=== PATIENT | male | born 1950 | race Caucasian/White ===

== ENCOUNTER → 2017-11-28 | Outpatient (CLI) | payer OTHER | LOC: NUC 11:38 | DX: I20.8 Other forms of angina pectoris (principal); R07.9 Chest pain, unspecified ==

== ENCOUNTER → 2018-02-20 | Outpatient (CLI) | payer OTHER | LOC: CAT 10:29 | DX: J43.9 Emphysema, unspecified (principal); J84.10 Pulmonary fibrosis, unspecified; J98.4 Other disorders of lung; I25.10 Atherosclerotic heart disease of native coronary artery without angina pectoris; R91.8 Other nonspecific abnormal finding of lung field; I70.0 Atherosclerosis of aorta; M25.78 Osteophyte, vertebrae ==

== ENCOUNTER 2019-01-11 08:21 | Inpatient (IN) | payer OTHER ==
[2019-01-11] VITALS (26 sets, daily range): BP systolic 106–165; BP diastolic 62–93
[~2019-01-11] VITALS: Ht 170.2 cm; Wt 66.7 kg
[2019-01-11 08:50] LABS: HEMATOCRIT 37.6 % (42.0-52.0); HEMOGLOBIN 12.2 gm/dL (14.0-18.0); MCH 30.3 pg (26.0-34.0); MCHC 32.5 g/dL (28.0-37.0); MCV 93.3 fL (80.0-100.0); PLATELET COUNT 239 thou/uL (150-400); RBC 4.03 mil/uL (4.50-6.00); RDW 14.5 % (10.5-14.5); WBC 7.1 thou/uL (4.0-11.0)
[2019-01-11 08:55] LABS: ANION GAP 0 mmol/L (7-16); BUN 9 mg/dL (7-18); CALCIUM 9.1 mg/dL (8.5-10.1); CHLORIDE 97 mmol/L (98-107); CO2 42 mmol/L (21-32); CREATININE 0.6 mg/dL (0.7-1.3); GLUCOSE 114 mg/dL (74-106); SODIUM 139 mmol/L (136-145)
[2019-01-11 09:04] LABS: BE(vivo) 11.5 mmol/L (-2 to +3); PO2 93.1 mmHg (80.0-100.0); sO2 95.7 % (92.0-98.0)
[2019-01-11 09:05] LABS: PCO2 91.1 mmHg (35.0-45.0); pH 7.282 (7.360-7.450)
[2019-01-11 09:05] LABS: ALBUMIN 3.1 g/dL (3.4-5.0); SGOT 22 U/L (15-37); SGPT 16 U/L (30-65); TOTAL BILIRUBIN 0.6 mg/dL (<0.1-1.0); TOTAL PROTEIN 6.2 g/dL (6.4-8.2); TROPONIN-I <0.06 ng/mL (<0.06)
[2019-01-11] MEDS ORDERED: MONTELUKAST SODI4 M1 PO (09:19)
[2019-01-11] MEDS ORDERED: SYMBICORT160 MCG/4. INH (09:20)
[2019-01-11] MEDS ORDERED: NYSTATIN100000 UNI SW&SWALLOW (09:20)
[2019-01-11] MEDS ORDERED: PROAIR HFA8.5 GM INH (09:20)
[2019-01-11] MEDS ORDERED: ALBUTEROL2.5 MG/31 INH (09:23)
[2019-01-11] MEDS ORDERED: NORVASC 2.5 MG2.5 M1 PO (09:24)
[2019-01-11] MEDS ORDERED: PLAVIX 75 MG TA75 MG PO (09:24)
[2019-01-11] MEDS ORDERED: CLARITIN10 M3 PO (09:24)
[2019-01-11] MEDS ORDERED: AZITHROMYCIN500 MG PO (09:25)
[2019-01-11] MEDS ORDERED: LIPITOR40 MG PO (09:26)
[2019-01-11] MEDS ORDERED: COMBIVENT RESPIM4 GM INH (09:27)
[2019-01-11] MEDS ORDERED: SPIRIVA RESPIMAT4 G1 INH (09:28)
[2019-01-11] MEDS ORDERED: EFFIENT10 MG PO (09:30)
[2019-01-11 09:43] LABS: ABSOLUTE NEUTROPHILS 3.9 thou/uL (1.4-8.2); PLATELET ESTIMATE NORMAL
[2019-01-11 10:46] LABS: BE(vivo) 12.3 mmol/L (-2 to +3); HCO3 42.6 mmol/L (22.0-26.0); PCO2 90.1 mmHg (35.0-45.0); pH 7.293 (7.360-7.450); sO2 90.7 % (92.0-98.0)
--- NOTE | 2019-01-11 11:38 | NUR ---
01/11: 1100 PT ARRIVE FROM ED WITH RT AND RN ON BIPAP. CRITICAL LAB CALLED TO DR MIN, REPEAT ABG ORDERED. START IVF. PT C/O PAIN IN LEFT SHOULDER, PRN TYLENOL GIVEN. PT FAMILY NOT IN WAITING ROOM, WENT TO A .
[2019-01-11 13:23] LABS: BE(vivo) 12.5 mmol/L (-2 to +3); HCO3 41.8 mmol/L (22.0-26.0); PO2 77.8 mmHg (80.0-100.0); pH 7.332 (7.360-7.450)
[2019-01-11 13:24] LABS: PCO2 80.7 mmHg (35.0-45.0)
--- NOTE | 2019-01-11 14:22 | NUR ---
PT STATES THAT HE IS UNABLE TO VOID. BLADDER SCAN PT AND 585MLS IN BLADDER. SAMMY TAG MARKER ASSESS PT AND ORDER TO START FLOWMAX AND GROVE CATHETER. WILL CONTINUE TO ASSESS.
[2019-01-12] VITALS (23 sets, daily range): BP systolic 118–161; BP diastolic 63–94
--- NOTE | 2019-01-12 06:24 | NUR ---
Pt has had uneventful night. Has refused insulin for blood sugars > 150 since he has not been eating well. States SOA is improved, but remains on 6 L cannula.
--- NOTE | 2019-01-12 07:53 | EKG ---
[address] [address] ELECTROCARDIOGRAM REPORT Name: LIAN FAUSTIN Room #: 247- ADM IN M.R.#: [id number] Admission: 01/11/19 Attend Phys: Eric Terry MD Discharge: Date of : 48 Report #: [id number] THIS REPORT FOR: //name// [facility] ED Test Date: 2019-01-11 Test Time: 08:45:26 Pat Name: LIAN FAUSTIN Department: Room: [facility] Gender: M Manufacturing Engineering Technologist: Acacia AGUILAR : 1950 Requested By: Eric Terry Order Number: [id number] MD: Klaus Juarez Measurements Intervals [place] Rate: 102 P: NM: QRS: 79 QRSD: 72 T: 81 QT: 328 QTc: 428 Interpretive Statements Sinus tachycardia Otherwise no significant abnormality Compared to ECG 12/04/1999 09:48:22 No significant change was found Electronically Signed On 01-12-2019 7:53:15 TRAVOGRAPH OPERATOR by Klaus Juarez [email or web address] <ELECTRONICALLY SIGNED> By: Klaus Juarez MD, [facility] 01/12/19 0753 4 Klaus Juarez MD, [facility] /EPI
--- NOTE | 2019-01-12 13:37 | NUR ---
Case opened to follow for dc planning. Pt is currently in ICU with copd exac and respiratory failure. Gunnery/Ordnance Officer visited with him at beside. he is now on 6liters and reports he normally wears 4liters at home. He has home o2 per [employer]. He has no other dme or hh history. He lives with his and has two steps into the home. He can stay on the main level. He reports sign sob and fatigue at home due to his breathing. He reports he doesn't get out of the house much due to this. His pcp is Dr. Mayelin Kaba. His sets up a pill box for him as he reports some forgetfulness. No family at bedside currently. Cm role introduced. The pt is receptive to HH referral at dc if needed. Will ask for therapy evals and follow along.
--- NOTE | 2019-01-12 15:30 | NUR ---
DR. PLASCENCIA CALLED RE PT TACHYCARDIC 130S SOA. SATS 88-90 AND PT FEELS LIKE HE IS GOING TO . CALLED, EMOTIONAL SUPPORT GIVEN. PT DOES NOT WANT TO GO BACK ON THE BIPAP, STATES HE CANNOT BREATH WITH IT. 1600 ATIVAN 1MG SIVP GIVEN, PT FELL ASLEEP AND PLACED BACK ON BIPAP. HR CAME DOWN AND SAT CAME UP ONCE PLACED ON 40 %
--- NOTE | 2019-01-12 18:52 | NUR ---
pt much calmer post ativan. tolorating bipap.
[2019-01-13] VITALS (25 sets, daily range): BP systolic 114–151; BP diastolic 66–84
--- NOTE | 2019-01-13 06:48 | NUR ---
PATIENT DROWSY DURING BEGINNING OF SHIFT. BIPAP WORN FROM 2391-8428, PATIENT RESTED WELL. CURRENTLY ON 6L NASAL CANNULA, 02 SAT REMAINED ABOVE 92%. SPOKE WITH DAUGHTER AND AT THE BEDSIDE ABOUT THE PLAN OF CARE. DAUGHTER HAD QUESTIONS ABOUT PATIENT GOING HOME WITH BIPAP OR CPAP EQUIPMENT. WILL PASS INFORMATION TO ONCOMING RN. PATIENT EDUCATED ON NURSING PLAN OF CARE AND VERBALIZED UNDERSTANDING. NO SIGNS OF ACUTE DISTRESS NOTED AT THIS TIME. WILL CONTINUE TO MONITOR.
--- NOTE | 2019-01-13 12:21 | NUR ---
DC timeframe is uncertain. Will reasses once out of ICU for possible HH referral or dme needs. Pt still needing bipap. Will follow.
[2019-01-14] VITALS (25 sets, daily range): BP systolic 121–188; BP diastolic 72–133
--- NOTE | 2019-01-14 03:46 | NUR ---
ASSUMED CARE OF PATIENT AT 1900. BP SLIGHTLY ELEVATED. DENIES PAIN. BED IN CHAIR POSITION. REQUESTED TO LAY FLAT. GIVEN PRN HYDROCODONE AT 10. BP CONTINUED TO BE ELEVATED WITH PAIN, FENTYNAL GIVEN. HEART RATE INCREASED, NOTED RHYTHM CHANGE, EKG CONFIRMED AFIB. DR PUENTE CALLED. ORDERS RECIEVED. PLACED ON CARDIZEM GTT. TITRATED TO KEEP RATE BELOW 120 AND CONTINUE TO HAVE GOOD BLOOD PRESSURE SUPPORT. RESTING WELL THROUGH THE NIGHT. ASSESSMENT CHARTED.
--- NOTE | 2019-01-14 19:29 | NUR ---
ASSESSMENTS AND INTERVENTIONS DOCCUMENTED. PATIENT VERY ANXIOUS THROUGH OUT SHIFT. COMPLAINING OF SOB. PATIENT HAD BREATHING TREATMENT AND PATIENT STILL ANXIOUS. XANAX GIVEN. PATIENT RESTED, BUT WAS STILL SHOWING SIGNS OF ANXIETY. PATIENT COMFORTED BY RN AND EDUCATED ON BREATHING.
[2019-01-15] VITALS (13 sets, daily range): BP systolic 123–157; BP diastolic 70–114
[2019-01-15 01:32] LABS: HEMATOCRIT 37.3 % (42.0-52.0); HEMOGLOBIN 12.1 gm/dL (14.0-18.0); MCH 29.9 pg (26.0-34.0); MCHC 32.5 g/dL (28.0-37.0); MCV 91.9 fL (80.0-100.0); RBC 4.05 mil/uL (4.50-6.00); RDW 15.1 % (10.5-14.5); WBC 9.4 thou/uL (4.0-11.0)
[2019-01-15 01:34] LABS: ANION GAP < 0 mmol/L (7-16); BUN 18 mg/dL (7-18); CALCIUM 8.7 mg/dL (8.5-10.1); CHLORIDE 97 mmol/L (98-107); CO2 38 mmol/L (21-32); CREATININE 0.6 mg/dL (0.7-1.3); GLUCOSE 140 mg/dL (74-106); MAGNESIUM 1.9 mg/dL (1.8-2.4); POTASSIUM 4.2 mmol/L (3.5-5.1); SODIUM 130 mmol/L (136-145)
--- NOTE | 2019-01-15 05:16 | NUR ---
ASSUMED CARE OF PATIENT AT 1900. VSS, AFEBRILE. SLIGHT RHYTHM CHANGE NOTED ON ASSESSMENT, ORDERS OBTAINED FOR EKG. RESULTS CALLED TO Zohra KOTHARI SHORTLY AFTER 7 BEAT RUN OF VTACH. ORDERS OBTAINED FOR LABS. RESULTS REPORTED TO Zohra BARROS. ORDERS RECIEVED. PATIENT RESTING COMFORTABLY, ASYMPTOMATIC. ON BIPAP WHILE SLEEPING, PRN XANAX GIVEN, STATES EXTREME RELIEF. DENIES PAIN AT THIS TIME. UP TO BSC FOR BM, EXTREMELY SOA. WORKING TOWARDS POC GOALS.
--- NOTE | 2019-01-15 13:05 | EKG ---
[address] [address] ELECTROCARDIOGRAM REPORT Name: LIAN FAUSTIN Room #: 358-P [facility] ..#: [id number] Admission: 01/11/19 Attend Phys: Eric Terry MD Discharge: Date of : 48 Report #: [id number] THIS REPORT FOR: //name// [facility] Test Date: 2019-01-15 Test Time: 00:56:46 Pat Name: LIAN FAUSTIN Department: Room: [facility] Gender: M Logistics Coordinator: alphonse medina : 1950 Requested By: Radha Lozano Order Number: [id number] MD: Klaus Juarez Measurements Intervals [place] Rate: 64 P: 81 MI: 106 QRS: 76 QRSD: 77 T: 61 QT: 368 QTc: 380 Interpretive Statements Sinus rhythm Atrial premature complexes Compared to ECG 01/11/2019 08:45:26 Atrial premature complex(es) now present Sinus tachycardia no longer present Electronically Signed On 01-15-2019 13:05:06 DEMURRAGE CLERK by Klaus Juarez [email or web address] <ELECTRONICALLY SIGNED> By: Klaus Juarez MD, [facility] 01/15/19 1305 0056 0056 Klaus Juarez MD, [facility] /EPI
--- NOTE | 2019-01-15 17:42 | NUR ---
PATIENT TRANSFER FROM ICU AT 1030. ANXIOUS. ON 40% VENTI MASK WITH CONTINUE PLUS OX 95%. MAX ASSISTED UP. SLOWLY TOWARDS POC GOALS.
--- NOTE | 2019-01-16 03:05 | NUR ---
PATIENT IS PROGRESSING SLOWLY IN HIS CARE PLAN. VITAL SIGNS STABLE THROUGHOUT SHIFT WITH PATIENT HAVING NO COMPLAINTS OF PAIN OR NAUSEA. FULLY ORIENTED, PATIENT IS ABLE TO CALL APPROPRIATELY FOR NEEDS AND PARTICIPATE IN CARE. PATIENT DID FREQUENTLY EXHIBIT ANXIETY. BREATHING STABLE EVIDENCED BY ASSESSMENT AND CONTINUOUS SATURATION MONITOR, PATIENT WAS ABLE TO TOLERATE BIPAP OVERNIGHT. UP MULTIPLE TIMES TO BEDSIDE COMMODE WITH ASSISTANCE INCIDENT FREE, PATIENT IS UNSTEADY ON FEET AND CONSIDERED A HIGH FALL RISK. CONTINUE PLAN OF CARE.
[2019-01-16 04:39] VITALS: BP 146/80
[2019-01-16 07:24] VITALS: BP 149/88
[2019-01-16 11:14] VITALS: BP 139/93
[2019-01-16 15:26] VITALS: BP 163/90
--- NOTE | 2019-01-16 18:31 | NUR ---
pt is A&0X3, PT has bipap and high follow o2 6-10l/min/nc to keep o2sat >91%, pt has PRN medication to help anxiety, pt's vs are stable.
[2019-01-16 19:56] VITALS: BP 153/80
--- NOTE | 2019-01-17 03:27 | NUR ---
Patient has been struggling with anxiety related to dyspnea. Patient has requested he receive his anxiolytic regularly- as soon as it is available. After assessing patient's anxiety level, nursing has administered PRN alprazolam nearly every four hours NOC. Patient has rested comfortably most of NOC and reports feeling less dyspnea.
[2019-01-17 05:36] VITALS: BP 147/78
[2019-01-17 07:32] VITALS: BP 145/88
[2019-01-17 11:40] VITALS: BP 133/76
[2019-01-17 15:05] VITALS: BP 142/85
[2019-01-17 19:38] VITALS: BP 141/85
--- NOTE | 2019-01-18 02:54 | NUR ---
PATIENT IS PROGRESSING SLOWLY IN HIS CARE PLAN. VITAL SIGNS STABLE WITH PATIENT HAVING NO COMPLAINTS OF PAIN OR NAUSEA. PATIENT IS FULLY ORIENTED BUT HIGHLY ANXIOUS AND REQUESTS ANXIETY MEDICATION CONSISTENTLY. BREATHING STABLE ON NASAL CANNULA EVIDENCED BY ASSESSMENT AND SPOT OXYGENATION CHECKS. PATIENT HAS BEEN ABLE TO TOLERATE THE BIPAP SO FAR OVERNIGHT. UP TO THE BEDSIDE COMMODE WITH ASSISTANCE INCIDENT FREE. PATIENT IS UNSTEADY AND CONSIDERED A HIGH FALL RISK. POSSIBLE DISCHARGE SOON TO REHAB OR HOME. CONTINUE PLAN OF CARE.
[2019-01-18 04:40] VITALS: BP 122/83
[2019-01-18 07:39] VITALS: BP 128/83
--- NOTE | 2019-01-18 11:41 | NUR ---
Nutrition: Following for oral intake progress. Continues on a heart healthy diet w/ soft/chopped meats per pt request. Eating variable amounts; 30-100% meals, but close to a 2/3 meal completion rate at 63% average this weekend. Also drinking 100% of 2 strawberry Ensure Enlive supplements daily for an added 700 kcals, 40 g protein. Pt relies on supplements between meals after meal settles. Beneficial for extra kcals in case meal slightly lower d/t SOB w/ eating at times. Pt receiving plentiful amounts of protein each meal. Plans to continue supplements after discharge (coupons provided). Discussed store options available and protein differences (Ensure, Boost, [place] w/ milk, or even high protein Fairlife milk). Change to low nutrition risk as pt reports appetite fairly stable again, at baseline.
[2019-01-18 11:50] VITALS: BP 130/75
--- NOTE | 2019-01-18 12:07 | NUR ---
IMTIAZ reviewed chart and spoke with nursing and attending physician. Pt was transferred to 3W from ICU and is progressing towards goals for discharge. IMTIAZ discussed case with Therapy Mgr who states that pt has been accepted to 5N. SW discussed with attending physician. Pt is not ready for d/c to 5N today. IMTIAZ is following to assist as needed with discharge planning.
--- NOTE | 2019-01-18 13:07 | NUR ---
PATIENT SEEN BY DR. VALLE THIS DATE. PATIENT HAS DESIRE TO RETURN DIRECTLY TO HOME. PATIENT MAY BE A CANDIDATE FOR ACUTE REHAB. WILL CONTINUE TO FOLLOW TO ASSESS IF PATIENT HAS FUNCTIONAL NEEDS FOR REHAB AND TOLERANCE FOR 3 HOURS OF THERAPY A DAY. CREWMAN ARMOURED PERSONNEL CARRIER M113 UPDATED. THANK YOU FOR THIS REFERRAL.
[2019-01-18 15:46] VITALS: BP 139/82
--- NOTE | 2019-01-18 18:48 | NUR ---
PT is A&OX3, t is continuing o2 4l/min/nc, pt 's vs and o2sat are stable, pt 's Chery catheter has removed at 1000am,after then pt has void 800ml urine by this time.
[2019-01-18 19:30] VITALS: BP 132/81
--- NOTE | 2019-01-19 02:25 | NUR ---
Patient seemed more relaxed NOC than this nurse's last shift two days ago working with him. Patient stated he felt more relaxed today and felt that he was breathing better than two days ago. Patient further advised he is still anxious and requested to take his alprozolam regularly to manage his anxiety. Patient rested quietly most of NOC. Nursing will continue to monitor.
[2019-01-19 04:10] VITALS: BP 127/73
[2019-01-19 07:24] VITALS: BP 119/64
[2019-01-19] MEDS ORDERED: LEVAQUIN 500 M500 M2 PO (09:38)
[2019-01-19] MEDS ORDERED: FLOMAX0.4 MG PO (09:38)
[2019-01-19] MEDS ORDERED: IPRAT-ALBUT 0.5-3 ML INH (09:38)
[2019-01-19] MEDS ORDERED: ENOXAPARIN40 MG/0.1 SUBQ (09:39)
[2019-01-19] MEDS ORDERED: SENNA-TIME S T1 EACH PO (09:39)
[2019-01-19] MEDS ORDERED: LOPRESSOR50 MG PO (09:40)
[2019-01-19] MEDS ORDERED: RAYOS5 MG PO (09:41)
[2019-01-19] MEDS ORDERED: ALPRAZOLAM 0.0.25 M1 PO (09:44)
[2019-01-19] MEDS ORDERED: TRAMADOL 50 MG50 MG PO (09:44)
[2019-01-19] MEDS ORDERED: CHANTIX0.5 MG PO (09:44)
[2019-01-19 11:09] VITALS: BP 151/85
--- NOTE | 2019-01-19 14:46 | NUR ---
IMTIAZ reviewed chart and spoke with nursing and attending physician. Pt is medically stable for discharge to 5N today. 5N rehab spec met with pt to discuss discharge to 5N. Pt is not agreeable with having to stay on 5N for at least 6 nights. Pt states he prefers to go home. IMTIAZ updated attending physician who spoke with pt and pt's . SW met with pt at bedside to discuss discharge plan. Pt states he will not go to 5N if he has to stay at least 6 nights. Pt states that due to his anxiety, he recovers better in his home. Pt is agreeable with HH services. SW spoke with pt's via speakerphone with pt. Pt's is agreeable with pt returning home and states pt has home O2 in place, but will need a new nebulizer and cpap machine. Pt has been using bipap in the hospital. SW explained need for outpatient sleep study to qualify for home cpap/bipap. Pt and spouse verbalized understanding. SW provided options for HH services. No preference voiced. Pt's PCP is Dr. Mayelin Kaba. IMTIAZ requested maintenance planner to fax referral to [facility], as they have RT available. IMTIAZ updated 5N rehab spec, pt's nurse and attending physician. Plan is for pt to dishcharge home tomorrow with HH services. IMTIAZ contacted the Sleep Lab to assist with scheduling pt an outpatient sleep study. planner to fax clinical info. IMTIAZ requested an order for sleep study from attending physician. IMTIAZ notified [facility] liaison of new referral. IMTIAZ is following to assist as needed with discharge planning.
--- NOTE | 2019-01-19 14:52 | NUR ---
DISCHARGE PLANNING. DISCHARGE PLAN IS TO HOME WITH HOME HEALTH SERVICES. PATIENT REFERRAL FAXED TO [facility] FOR HH NEEDS. CALL PLACED TO [facility] TO NOTIFY. AWAITING RESPONSE. PATIENT FACESHEET AND H&P FAXED TO SLEEP LAB FOR OUTPATIENT SLEEP STUDY NEEDS. PLAN IS FOR PATIENT TO DISCHARGE TO HOME TOMORROW. FOLLOWING TO ASSIST.
[2019-01-19 15:16] VITALS: BP 135/78
--- NOTE | 2019-01-19 16:21 | NUR ---
pt is A&OX3, pt is continuing o2 4L/MIN/NC, and IV ABX, PT 's vs and o2sat are stable, pt's anxiety can control by medication.pt denies pain and sob when pt gets up to bathroom , pt has slowly meeting care plan goals, RN has called dr to report pt refused to go to rehab 5N, pt may go home tomorrow with home health care, PT/OT/RT,pt and pt's are happly to d/c to home tomorrow.
[2019-01-19 20:16] VITALS: BP 128/81
[2019-01-20 04:24] VITALS: BP 119/79
--- NOTE | 2019-01-20 06:36 | NUR ---
Patient appeared to have less anxiety this NOC than yesterday. Alprazolam administered as needed. Patient is extremely happy that he is going home today. Nursing will continue to monitor.
[2019-01-20 07:26] VITALS: BP 120/73
[2019-01-20 11:34] VITALS: BP 139/78
--- NOTE | 2019-01-20 13:14 | NUR ---
I have reviewed the documentation by JUSTICE PARRA from 01/20/19 to 01/20/19 and I concur with it. SAYRA RAMOS
--- NOTE | 2019-01-20 16:15 | NUR ---
DISCHARGE NOTE: IMTIAZ reviewed chart and spoke with nursing and attending physician. Pt is medically stable for discharge today. Pt is now agreeable with going to 5N. IMTIAZ updated 5N rehab services aide who met with pt at bedside. Pt concerned about having a cpap/bipap machine. SW discussed with attending physician about pt getting a trilogy machine for home use. Attending physician agreeable with referral for trilogy. SW met with pt at bedside to discuss discharge plan. SW explained process for obtaining a trilogy machine. Pt is agreeable. Attending physician met with pt and SW to further discuss the home trilogy. Pt is agreeable. planner internship faxed clinical info and orders to [facility]. SW notified [facility] liaison. Pt qualifies for home trilogy and is covered at 100%. Trilogy to be delivered to pt's room on 5N tomorrow. Pt will start using home trilogy machine while on rehab. Pt will discharge home with [facility], who met with pt at bedside earlier today. IMTIAZ updated pt's nurse. Pt to move to 5N later today. IMTIAZ spoke with pt's via phone to provide update and confirmed discharge plan. Rehab CM to follow and assist as needed with discharge planning.
[2019-01-20 16:27] VITALS: BP 131/73
--- NOTE | 2019-01-20 16:28 | NUR ---
pt is A&OX3, PT is continuing o2 4L/MIN/NC, PT's vs and o2sat are stable, pt has SOB with activities, pt has getting up to bathroom with assist, RN has received order discharge to Rehab units 5N today.
== END 2019-01-20 18:18 | DRG 189 ==
LOC: ER 08:21 → EROBS 09:57 → ICU 09:57 → 3W 01-15 10:16
PROVIDERS: Emergency Medicine; Internal Medicine Pulmonary Disease; Nurse Practitioner Family; ADMIT Hospitalist
PROC: 5A09357 Assistance with Respiratory Ventilation, Less than 24 Consecutive Hours, Continuous Positive Airway Pressure (ICD-10-PCS; principal; 2019-01-14)
PROC: 5A09357 Assistance with Respiratory Ventilation, Less than 24 Consecutive Hours, Continuous Positive Airway Pressure (ICD-10-PCS; 2019-01-15)
PROC: 5A09357 Assistance with Respiratory Ventilation, Less than 24 Consecutive Hours, Continuous Positive Airway Pressure (ICD-10-PCS; 2019-01-16)
PROC: 5A09357 Assistance with Respiratory Ventilation, Less than 24 Consecutive Hours, Continuous Positive Airway Pressure (ICD-10-PCS; 2019-01-17)
PROC: 5A09357 Assistance with Respiratory Ventilation, Less than 24 Consecutive Hours, Continuous Positive Airway Pressure (ICD-10-PCS; 2019-01-18)
PROC: 5A09357 Assistance with Respiratory Ventilation, Less than 24 Consecutive Hours, Continuous Positive Airway Pressure (ICD-10-PCS; 2019-01-19)
PROC: 5A09357 Assistance with Respiratory Ventilation, Less than 24 Consecutive Hours, Continuous Positive Airway Pressure (ICD-10-PCS; 2019-01-20)
DX: J96.22 Acute and chronic respiratory failure with hypercapnia (principal); J44.1 Chronic obstructive pulmonary disease with (acute) exacerbation; E46 Unspecified protein-calorie malnutrition; I48.91 Unspecified atrial fibrillation; F17.210 Nicotine dependence, cigarettes, uncomplicated; E78.5 Hyperlipidemia, unspecified; I25.10 Atherosclerotic heart disease of native coronary artery without angina pectoris; I73.9 Peripheral vascular disease, unspecified; N40.0 Benign prostatic hyperplasia without lower urinary tract symptoms; I10 Essential (primary) hypertension; J96.21 Acute and chronic respiratory failure with hypoxia; Z23 Encounter for immunization; Z95.5 Presence of coronary angioplasty implant and graft; Z95.820 Peripheral vascular angioplasty status with implants and grafts; Z99.81 Dependence on supplemental oxygen; Z68.23 Body mass index [BMI] 23.0-23.9, adult; Z71.6 Tobacco abuse counseling
CPT/HCPCS: 10078; 10879

== ENCOUNTER 2019-01-19 12:21 | Inpatient (IN) | payer OTHER ==
[~2019-01-19] VITALS: Ht 172.7 cm; Wt 69.4 kg
[~2019-01-19 12:21] MED LIST: ALBUTEROL2.5 MG/31 INH; ALPRAZOLAM 0.0.25 M1 PO; AZITHROMYCIN500 MG PO; CHANTIX0.5 MG PO; CLARITIN10 M3 PO; COMBIVENT RESPIM4 GM INH; EFFIENT10 MG PO; ENOXAPARIN40 MG/0.1 SUBQ; FLOMAX0.4 MG PO; IPRAT-ALBUT 0.5-3 ML INH; LEVAQUIN 500 M500 M2 PO; LIPITOR40 MG PO; LOPRESSOR50 MG PO; MONTELUKAST SODI4 M1 PO; NORVASC 2.5 MG2.5 M1 PO; NYSTATIN100000 UNI SW&SWALLOW; PLAVIX 75 MG TA75 MG PO; PROAIR HFA8.5 GM INH; RAYOS5 MG PO; SENNA-TIME S T1 EACH PO; SPIRIVA RESPIMAT4 G1 INH; SYMBICORT160 MCG/4. INH; TRAMADOL 50 MG50 MG PO
[2019-01-20 18:45] VITALS: BP 132/84
--- NOTE | 2019-01-21 01:00 | NUR ---
PATIENT HERE WITH RECENT ACUTE RESPIRATORY FAILURE, STATES HE WAS REALLY STRUGGLING AT HOME AND HAS BEEN TOLD HE NEEDS CPAP/BIPAP/TRILOGY AT HOME. USING 4 LITERS OXYGEN TO WALK TO BATHROOM FOR VOID AND BM
--- NOTE | 2019-01-21 04:19 | NUR ---
OTHER THAN WALK TO BATHROOM, PATIENT HAS BEEN TOLERATING BIPAP SINCE 2244. XANAX AT MIDNIGHT, WILL OFFER ANOTHER NEXT TIME HE IS AWAKE SINCE HE PREFERS TO TAKE XANAX EVERY 4 HOURS FOR ANXIETY.
[2019-01-21 06:10] LABS: HEMATOCRIT 37.4 % (42.0-52.0); HEMOGLOBIN 12.1 gm/dL (14.0-18.0); MCH 29.9 pg (26.0-34.0); MCHC 32.4 g/dL (28.0-37.0); MCV 92.2 fL (80.0-100.0); RBC 4.05 mil/uL (4.50-6.00); RDW 15.2 % (10.5-14.5); WBC 14.5 thou/uL (4.0-11.0)
[2019-01-21 06:14] LABS: ANION GAP < 0 mmol/L (7-16); BUN 25 mg/dL (7-18); CALCIUM 8.7 mg/dL (8.5-10.1); CHLORIDE 102 mmol/L (98-107); CO2 40 mmol/L (21-32); CREATININE 0.5 mg/dL (0.7-1.3); GLUCOSE 106 mg/dL (74-106); POTASSIUM 4.8 mmol/L (3.5-5.1); SODIUM 140 mmol/L (136-145)
--- NOTE | 2019-01-21 08:11 | NUR ---
Nutrition: Received wt loss consult for 20#/malnutrition. New admit to rehab 01/20. Already assessed on acute floor 01/[address]; reassessed again this week on 01/18. Pt reported 24# wt loss over 1-1.5 yrs for a 15% wt change. Since admit, wt up +12-15# from 137-141# to 153# per 01/20. With some wt regain and adequate po intake, will defer diagnosis at this time. 85% meal average x 2 days, 74% average overall since 01/16. [facility], he reported general return to baseline appetite. Continues to drink Ensure Enlive BID between meals, adding 700 kcals, 40 g protein/day. Supplement continued w/ new rehab admit and coupons provided to encourage ongoing use after d/c. Given significant nutritions gains since Nov admit, keep as low nutrition risk.
[2019-01-21 09:30] VITALS: BP 129/71
--- NOTE | 2019-01-21 13:49 | NUR ---
ASSUMED CARE OF PT AT 0715. PT IS A&OX4 AND VITAL SIGNS ARE STABLE. PT DENIES PAIN, BUT REPORTS SEVERE ANXIETY. ANXIETY MANAGED WITH PO MEDICATIONS, PARTICIPATED IN SCHEDULED THERAPEIS. PT REPORTS THAT HE FEELS ANXIOUS ABOUT BECOMING SHORT OF BREATH AND "NOT GETTING ENOUGH OXYGEN". LUNG SOUNDS DIMINISHED IN ALL LOBES BILATERALLY, INCREASED WORK OF BREATHING AT REST, O2 4L VIA NC TO MAINTAIN SPO2 >90%. CALLS APPROPRIATELY FOR ASSISTANCE. FALL PRECAUTIONS IN PLACE AND NURSING WILL CONTINUE TO MONITOR.
--- NOTE | 2019-01-21 14:32 | NUR ---
chart review. cm showed spouse keyanna where to find his room. pt up in recliner chair. intro to cm, dcp, and team meeting. trilogy not here yet from [facility]. pt on o2 per nasal cannula. pt normally wears 4 L o2 at home with rest and activity. pt and reported " independent, has cane and walker. has tub/shower chair. has not driving in 4-5 months but before that he was driving. he manage own medication at home. cooks and does laundry. 10 steps with right side hr to basement to laundry room. he doesnt go down there"/byron. will cont following as needed for dc needs.
[2019-01-21 20:51] VITALS: BP 137/91
--- NOTE | 2019-01-22 02:15 | NUR ---
UP TO BATHROOM WITH STANDBY ASSIST FOR LARGE BM AND MEDIUM VOID. ALSO USING URINAL FOR VOIDS OF 300-400. TOLERATING BIPAP SINCE 2300 WITH O2 SATS GREATER THAN 95% PLEASANT, APPRECIATES XANAX
[2019-01-22 08:10] VITALS: BP 127/72
--- NOTE | 2019-01-22 10:01 | NUR ---
returned phone call to [facility] sleep study dep wanted to know when pt was going to dc to set up his sleep study? let them know have meeting next tue and would provide update. cm check with bedside nurse trilogy from [facility] has not been sent yet. cm spoke with liaison with [facility] and they needing few more doc and they it will be sent out here so that he can use it while in acute rehab. will cont following as needed for dc needs. [facility] still needs rx and notes for trilogy. will have cm team send notes.
[2019-01-22 19:44] VITALS: BP 134/78
--- NOTE | 2019-01-22 19:46 | NUR ---
ASSUMED CARE OF PT AT 0715. PT IS A&OX4 AND VITAL SIGNS ARE STABLE. PT DENIES PAIN BUT DOES REPORT PERIODS OF INCREASED ANXIETY WHICH WERE MANAGED WITH PO MEDICAITONS. PT ON 4L O2 VIA NC TO MAINTAIN SPO2 >90%. IV IN RIGHT HAND REMOVED DUE TO INFILTRATION, REPLACED BY 22G IN RIGHT WRIST. FLUSHES APPROPRIATELY, SITE WNL, DRESSING C/D/I. CALLS APPROPRIATELY, FALL PRECAUTIONS IN PLACE AND NURSING WILL CONTINUE TO MONITOR.
--- NOTE | 2019-01-23 00:39 | NUR ---
PT ASSESSMENT DONE AND VSS. MEDS GIVEN AND WILL TOLERATED. FALL PRECAUTIONS IN PLACE. HOURLY ROUNDING. CALL LIGHT IN REACH. SLEEPING WELL. WILL CONTINUE TO MONITOR.
[2019-01-23 10:53] VITALS: BP 147/78
--- NOTE | 2019-01-23 16:43 | NUR ---
ASSUMED CARE OF PT AT 0715. PT IS A&OX4 AND VITAL SIGNS ARE STABLE. PT DENIES PAIN AND PARTICIPIATED IN SCHEDULED THERAPIES. PT DOES REPORT FREQUENT PERIODS OF INCREASED ANXIETY, MANAGED WITH PO MEDICAITONS AND BREATHING TREATMENTS. PT REPORTS DURING PERIODS OF ANXIETY THAT HE FEELS LIKE HE CAN'T BREATH AND THAT HE IS NOT GETTING OXYGEN THROUGH HIS NASAL CANULA. SPO2 MONITORED AND REMAINED >92% ON 3L O2. PT ENCOURAGED TO USE PURSED LIP BREATHING AND FOCUS ON CONTROLLED BREATHING DURING PERIODS OF INCREASED ANXIETY. LUNG SOUNDS ARE DIMINISHED IN ALL LOBES BILATERALLY, NON-PRODUCTIVE COUGH. CALLS FOR ASSISTANCE APPROPRIATLEY, FALL PRECAUTIONS IN PLACE AND NURSING WILL CONTINUE TO MONITOR.
[2019-01-23 20:55] VITALS: BP 129/80
--- NOTE | 2019-01-24 05:58 | NUR ---
PT ASSESSMENT COMPLETED AND VSS. MEDS GIVEN ORDERED AND WELL TOLERATED. FALL PRECAUTIONS IN PLACE. PT FEELS LESS ANXIOUS THIS EVENING AND DID NOT WANT ANY ANXIETY MEDICATION. BIPAP ON AT HS. SAT WNL ON 3L NC/BIPAP. VOIDING MODERATE AMOUNT PER URINAL. WILL CONTINUE TO MONITOR FREQUENTLY. PT REFUSED TO HAVE PETER HOSE REMOVED AND WANTED TO WEAR THEM DURING THE NIGHT.
[2019-01-24 09:00] VITALS: BP 138/66
--- NOTE | 2019-01-24 16:23 | NUR ---
ASSUMED CARE OF PT AT 0715. PT IS A&OX4 AND VITAL SIGNS ARE STABLE. PT DENIES PAIN AND REPORTS SOME ANXIETY. PT CONTINUES TO TAKE ANXIETY MEDS Q4H WHILE AWAKE. PT IS FOCUSING ON BREATHING TECHNIQUES AND STATES THAT THEY DO SEEM TO BE HELPING WITH CONTROLLING HIS ANXIETY. PT ON 3L O2 VIA NC TO MAINTAIN SPO2>90%. LUNG SOUNDS DIMINISHED IN ALL LOBES BILATERALLY. IV IN RIGHT WRIST PATENT, DRESSING REINFORCED, SITE WNL. PT NAPPING THIS AFTERNOON BETWEEN [phone]. CALLS APPROPRIATELY FOR ASSISTANCE. FALL PRECAUTIONS IN PLACE AND NURSING WILL CONTINUE TO MONITOR.
--- NOTE | 2019-01-24 23:09 | NUR ---
PT ASSESSMENT COMPLETED AND VSS. MEDS GIVEN ORDERED AND WELL TOLERATED. FALL PRECATIONS IN PLACE. PT UP TO THE BATHROOM WITH ASST/GAIT - STEADY. LARGE SOFT BM AT HS. PT REFUSED SENNA THIS EVENING AND STATED THAT HE HAS BEEN HAVING GOOD BMS DAILY. SAT WNL ON NC AND BIPAP AT HS. PT VERY CALM WITH REDUCED ANXIETY THIS EVENING. PT STATES THAT HE REALLY WANTS TO GO HOME AND THAT HE FEELS HE WILL RECOVER BETTER AT HOME. REMINDED PT THAT HE IS STILL ON IV STERIODS FOR HIS BREATHING SO IT IS IMPORTANT TO STAY UNTIL HE IS WELL ENOUGH TO GO HOME. PROVIDED MUCH EMOTIONAL SUPPORT. SLEEPING WELL. WILL CONTINUE TO MONITOR FREQUENTLY.
[2019-01-25 07:20] VITALS: BP 133/79
--- NOTE | 2019-01-25 17:23 | NUR ---
PT DENIES PAIN THIS SHIFT. REPORTS INCREASED ANXIETY, MEDS GIVEN PER ORDERS. PT ABLE TO WORK WITH THERAPY BUT DOES EXPERIENCE SOA OFTEN WITH ACTIVITY. MEALS ATE IN ROOM, ENCOURAGED PT TO EAT IN DINING [place], REPORTS INCREASED ANXIETY ABOUT AMBULATING. STATES THAT HE DOES NOT WANT TO LOSE HIS AIR OR ABILITY TO BREATHE. REASSURANCE GIVEN. FALL PRECAUTIONS IN PLACE, CALLS FOR ASSIST APPROPRIATELY.
[2019-01-25 19:15] VITALS: BP 114/57
--- NOTE | 2019-01-26 03:40 | NUR ---
USING O2 3L PER NASAL CANNULA PRIOR TO USING BIPAP STARTING AT 2300. O2 SAT RUNNING 98% TO 100% WHILE ON BIPAP. APPRECIATED XANAX AT 2200 AND REMINDED THAT HE CAN CALL FOR ANOTHER DOSE ANYTIME AFTER 0200, TIME OF NEXT AVAILABLE DOSE ALSO WRITTEN ON WHITE BOARD. USING URINAL AT BEDSIDE WITH STAFF EMPTYING
[2019-01-26 09:00] VITALS: BP 133/77
--- NOTE | 2019-01-26 12:21 | NUR ---
paper work for pt trilogy left on chart for david CALLAHAN to complete for fernando to bring trilogy here for him to use prior to dc home. bedside nurse notified to follow up with krystal CALLAHAN.
--- NOTE | 2019-01-26 14:55 | NUR ---
DISCHARGE PLANNING. ANTICIPATED DISCHARGE TO HOME 01/28 PER UNIT CM. TRILOGY AND WALKER ORDERED FOR HOME USE THROUGH [facility]. CLINCALS AND RX FAXED TO [facility]. [facility] RECEIVED AND WILL FACILITATE PATIENTS DME NEEDS. PULMONOLIGIST TO COMPLETE RX FOR TRILOGY AND PROGRESS NOTE NEEDS. UNIT CM AWARE. HOME HEALTH RECOMMENDED AT DISCHARGE. PATIENT REFERRAL FAXED TO [facility] PER REQUEST. CALL PLACED TO [facility] TO NOTIFY OF PATIENT REFERRAL. AWAITING RESPONSE. UNIT CM AWARE. FOLLOWING.
[2019-01-26 19:15] VITALS: BP 126/72
--- NOTE | 2019-01-26 20:03 | NUR ---
assumed care of pt at 0715. pt is a&ox4 and vital signs are stable. pt denies pain and participated in scheduled therapies. anxiety improved, anxiety medicaitons provided as needed once during shift. pt managing anxiety with breathing techniques and relaxation techniques. papers for trilogy signed and given to cm. pt on 3l o2 via nc to maintain spo2 >90%. calls appropriately, fall precautions in place and nursing will continue to monitor.
--- NOTE | 2019-01-27 02:32 | NUR ---
PT ALERT AND ORIENTED X 4. 02 ON AT 3L PER NC. PT HAD BIPAP ON FOR 3 HOURS TONIGHT. WANTED IT REMOVED BECAUSE IT WAS MAKING HIS NOSE SORE. PT SOB WITH ACTIVITY. XANAX GIVEN X 2 FOR C/O ANXIETY. VOIDING ADEQUATE AMTS CLEAR YELLOW URINE PER URINAL. PT DENIES PAIN OR DISCOMFORT. BED ALARM ON FOR SAFETY. PT CHECKED ON HOURLY ROUNDS.
[2019-01-27 08:45] VITALS: BP 113/63
--- NOTE | 2019-01-27 11:08 | NUR ---
PT A&OX4. AMBULATES WITH ASSIST X1. O2A23L PER NC GET SOA ON EXCERTION. BILAT. LOWER EXTREM. EDEMA NOTED. PT HAS WHAT APPEARS TO BE RINGWORM ON LEFT AND RIGHT FEET, ALREADY ON A PO ANTIFUNGAL JANAE MD PHYSICIAN DERMATOLOGIST WILL ORDER A CREAM AND HAND BOX COVERER WELL. PT GIVEN ALPROLAZAM FOR ANXIETY.
--- NOTE | 2019-01-27 12:28 | NUR ---
oralia spoke with fernando and fernando going to work with dr li to get correct doc for pt to get trilogy and 4ww prior to dc tomorrow home with specialized hh.
--- NOTE | 2019-01-27 16:02 | NUR ---
Patient participated in therapeutic group on 01/27/19 with OT. Refer to documentation by OT.
--- NOTE | 2019-01-27 18:35 | NUR ---
PT ALERT AND ORIENTED TIMES FOUR. VSS, PT DENIES PAIN/SOA, BUT C/O HIGH ANXIETY PRN MEDICATIONS GIVEN WITH GOOD RELEIF. PT TOLERATES MEDS AND MEDS. PT IS NOW ABLE TO GET UP AB SAIRA. PT PROGRESSING TOWRADS POC GOALS.
[2019-01-27 19:12] VITALS: BP 116/71
--- NOTE | 2019-01-28 10:03 | HC ---
[facility] [address] CONSULTATION Name: LIAN FAUSTIN Chris Room #: 515-P [facility] IN ..#: [id number] Admission: 01/20/19 Attend Phys: Gerald Carrion MD Discharge: Date of : 48 Report #: [id number] THIS REPORT FOR: //name// CC: Gerald Baig-[facility] DATE OF SERVICE: 01/27/2019 INTRODUCTION: The patient is a 68-year-old male being seen for podiatric consultation regarding a general foot care. The patient has a long history of COPD, coronary artery disease, and has been recently admitted for rehabilitation following acute respiratory failure. He has had significant lower extremity edema, bilateral tinea pedis, and severe onychodystrophy and elongation of his nails. They have not been cared for in many months. PAST MEDICAL HISTORY: Remainder of his past medical history with regard to this consultation is not remarkable. He denies a history of peripheral arterial disease and diabetes mellitus. PEDAL EXAM: Dorsalis pedis and posterior tibial pulses are weakly palpable due to severe lower extremity edema including significant edema in his feet. He demonstrates a mild erythema in all webspaces of the right foot and a circular rash on the dorsum of both feet consistent with tinea infection. There are no open wounds at this time. No ulcerations or evidence of bacterial infection. The patient's nails are severely elongated, thickened, show clinical evidence of onychomycosis with profound onychodystrophy. No acute findings are noted with regard to his nails. IMPRESSION: 1. Onychodystrophy, bilateral feet. 2. Tinea pedis. 3. Significant lower extremity edema. PLAN: The patient's condition was reviewed with him at length. His nails were debrided today and there was no additional pathology noted at the time of treatment. He is currently being treated with a topical antifungal for the areas of tinea. It has been a pleasure having the opportunity of caring for the patient. We discussed post-discharge hygiene issues and I have left him my card for outpatient followup, should he find this necessary. <ELECTRONICALLY SIGNED> By: Zachary Trevino DPM 01/28/19 1003 1741 0228 Zachary Trevino DPM /nt
[2019-01-28] MEDS ORDERED: PREDNISONE 20 M20 MG PO (10:08)
[2019-01-28] MEDS ORDERED: PROTONIX40 M1 PO ×2 (10:08→11:46)
[2019-01-28] MEDS ORDERED: IPRAT-ALBUT 0.5-3 ML INH (10:08)
[2019-01-28] MEDS ORDERED: FLONASE 0.05%50 MCG NASAL (10:08)
[2019-01-28] MEDS ORDERED: CLARITIN10 M3 PO (10:08)
[2019-01-28] MEDS ORDERED: FLOMAX0.4 MG PO (10:08)
[2019-01-28] MEDS ORDERED: LOPRESSOR50 MG PO (10:08)
[2019-01-28] MEDS ORDERED: CLOTRIMAZOLE 1%15 G1 TOP (10:09)
[2019-01-28] MEDS ORDERED: NEBULIZER MISCELL (10:20)
--- NOTE | 2019-01-28 10:32 | NUR ---
per fernando/zak crawford still need updated progress note with ventilator in note. 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 per fernando neb, 4ww and trilogy will be delivered to pt home. home with specialized hh.
[2019-01-28 10:35] VITALS: BP 120/76
[2019-01-28 10:37] VITALS: BP 116/71
[2019-01-28 11:42] VITALS: BP 116/71
[2019-01-28] MEDS ORDERED: CELEXA10 MG PO (12:06)
--- NOTE | 2019-01-28 16:09 | NUR ---
ASSUMED CARE OF PT AT 0715. PT IS A&OX4 AND VITAL SIGNS ARE STABLE. PT ON 3L O2 VIA NC TO MAINTAIN SPO2 >90%. MOD I IN ROOM. ANXIETY MANAGED WITH PO MEDICAITONS. ORDERS FOR DISCHARGE TODAY. DISCHARGE MEDICAITONS REVIEWED WITH KARIS CARDOSO. SCRIPTS FOR DISHCARGE MEDS PROVIDED TO PT, DISCHARGE EDUCATION, MEDICATION INFO SHEETS PRINTED AND PLACED IN DISCHARGE PACKET. BELONGINGS REMOVED FROM ROOM BY SON AT TIME OF DISCHARGE. PT AND SON DENY QUESTIONS AT TIME OF DISHCARGE. DISCHARGE PAPERWORK SIGNED. VOLUNTEER TRANSPORT ASSISTED PT AND SON TO MEDICAL MALL ENTRANCE VIA AT 1230.
--- NOTE | 2019-01-29 13:55 | PLAN ---
[facility] [place] [address] REHAB UNIT PLAN OF CARE Name: SHADILIANDINORA Perez SR Room #: 515-P [facility] IN ..#: [id number] Admission: 01/20/19 Attend Phys: Gerald Carrion MD Discharge: 01/28/19 Date of : 48 Report #: [id number] THIS REPORT FOR: //name// CC: Gerald BaigMarisela DATE OF SERVICE: 01/22/2019 PROGRESS NOTE/OVERALL PLAN OF CARE SUBJECTIVE: The patient was seen back today in followup. He is in no distress. Last recorded temperature 98.6, pulse 104, respirations 22, blood pressure 137/91. He is working in therapies with transfer standby assist and gait 100 feet contact guard without a device. He has been able to go up 4 steps mod assist. In occupational therapy, lower body dressing is max assist, upper body dressing is min assist. He is on nasal prong 0.25 liters. ASSESSMENT: 1. Pulmonary rehabilitation. 2. Recent acute respiratory failure. 3. Acute exacerbation of chronic obstructive pulmonary disease. 4. Tobacco abuse. 5. Significant anxiety. 6. Benign prostatic hypertrophy. 7. History of left rotator cuff injury. PLAN: The overall plan of care is based on the preadmission screen, post-admission physician evaluation and information garnered from therapy assessments. 1. Estimated length of stay is probably 5-10 days pending progress. 2. Medical prognosis is reasonably good. 3. Anticipated interventions includes the interdisciplinary acute inpatient rehabilitation program. 4. Anticipated functional outcomes would be for the patient to become modified independent with transfers, mobility and ADLs and to improve his overall endurance, so that he can return back to the home setting. 5. Discharge destination would be back home where he lives with his . 6. Expected therapy by discipline includes PT, OT 1-1/2 hours per day each five days a week throughout the duration of the acute inpatient rehabilitation stay. <ELECTRONICALLY SIGNED> By: Gerald Carrion MD 01/29/19 1355 1006 0011 Gerald Carrion MD /nt
--- NOTE | 2019-01-29 13:55 | H ---
[facility] [place] [address] HISTORY AND PHYSICAL Name: LIAN FAUSTIN Room #: 515-P [facility] IN ..#: [id number] Admission: 01/20/19 Attend Phys: Gerald Carrion MD Discharge: 01/28/19 Date of : 48 Report #: [id number] THIS REPORT FOR: //name// [facility] DATE OF SERVICE: 01/20/2019 POSTADMISSION PHYSICIAN EVALUATION HISTORY OF PRESENT ILLNESS: The patient has been admitted for acute in-hospital inpatient rehabilitation. Please see the full history and physical. I agree with the document as noted including the history of present illness, prior history, social history, examination findings as noted as well as the assessment and plan. The patient has a prior history of COPD and was on 4 liters nasal cannula and was admitted for acute respiratory failure with acute exacerbation of chronic obstructive pulmonary disease to the [facility]. He has been followed closely by Pulmonary Medicine with treatment with IV steroids and IV antibiotics, utilizing the BiPAP at night high flow O2 during the day. He does have significant anxiety. He has gait instability. He was felt to be ready for acute in-hospital inpatient rehabilitation. As far as past medical history, allergies, social history, habits, please see the history and physical as noted. MEDICATIONS: Please see the MAR. REVIEW OF SYSTEMS: No current chest pain, shortness of breath or abdominal discomfort are noted. He does have some cough and shortness of breath with increased activity. PHYSICAL EXAMINATION: GENERAL: The patient was seen earlier. VITAL SIGNS: Temperature 97.6, pulse 83, respirations 16, blood pressure 129/71. HEENT: Appeared to be benign. CHEST: Some decreased breath sounds with some wheezing. CARDIOVASCULAR: Regular rate and rhythm. ABDOMEN: Bowel sounds positive, nontender. GENITOURINARY: Deferred. RECTAL: Deferred. EXTREMITIES: He needs assistance to standby for transfers, mod assist short distance ambulation. IMPRESSION: 1. Acute respiratory failure. [facility] [address] [place] [address] HISTORY AND PHYSICAL Name: LIAN FAUSTIN Chris Room #: 515-P [facility]#: [id number] Admission: 01/20/19 Attend Phys: Gerald Carrion MD Discharge: 01/28/19 Date of : 48 Report #: [id number] 2. Acute exacerbation of chronic obstructive pulmonary disease. 3. Pulmonary rehabilitation. 4. Tobacco abuse. 5. Significant anxiety. 6. Benign prostatic hypertrophy. 7. History of left rotator cuff injury. PLAN: The patient is admitted for acute in-hospital inpatient rehabilitation. From a postadmission physician evaluation perspective, there are no relevant changes since the preadmission screening. Please see the above noted review of prior and current medical and functional conditions and comorbidities. As far as risk of complications, the patient has multiple medical comorbidities as noted above. Initial plan of care involves the interdisciplinary acute inpatient rehabilitation program. Measurable functional goals would be for him to become modified independent with transfers, mobility and ADLs and to improve as far as his overall pulmonary stability, his endurance, gait stability to decrease chances of falls. Prognosis is reasonably good with estimated length of stay probably at least 6-10 days and likely longer as warranted. Potential barriers would include his multiple medical comorbidities and decreased functional status. The patient meets diagnostic criteria for an acute in-hospital inpatient rehabilitation stay. He meets the medical necessity criteria and we will have the health and safety consultant physicians follow while he is on the rehab sampson. He does have the tolerance for therapies and has appropriate discharge goals back to the home setting. <ELECTRONICALLY SIGNED> By: Gerald Carrion MD 01/29/19 1355 1530 1550 Gerald Carrion MD /nt
== END 2019-01-28 12:34 | disposition home health service (06) | DRG 189 ==
LOC: ENTRNSPT 01-28 12:27 → EDTRNSPTSTS 01-28 12:29
PROVIDERS: ADMIT Physical Medicine & Rehabilitation
PROC: 5A09357 Assistance with Respiratory Ventilation, Less than 24 Consecutive Hours, Continuous Positive Airway Pressure (ICD-10-PCS; principal; 2019-01-20)
PROC: 5A09357 Assistance with Respiratory Ventilation, Less than 24 Consecutive Hours, Continuous Positive Airway Pressure (ICD-10-PCS; 2019-01-21)
PROC: 5A09357 Assistance with Respiratory Ventilation, Less than 24 Consecutive Hours, Continuous Positive Airway Pressure (ICD-10-PCS; 2019-01-22)
PROC: 5A09357 Assistance with Respiratory Ventilation, Less than 24 Consecutive Hours, Continuous Positive Airway Pressure (ICD-10-PCS; 2019-01-23)
PROC: 5A09357 Assistance with Respiratory Ventilation, Less than 24 Consecutive Hours, Continuous Positive Airway Pressure (ICD-10-PCS; 2019-01-24)
PROC: 5A09357 Assistance with Respiratory Ventilation, Less than 24 Consecutive Hours, Continuous Positive Airway Pressure (ICD-10-PCS; 2019-01-25)
PROC: 5A09357 Assistance with Respiratory Ventilation, Less than 24 Consecutive Hours, Continuous Positive Airway Pressure (ICD-10-PCS; 2019-01-26)
PROC: 5A09357 Assistance with Respiratory Ventilation, Less than 24 Consecutive Hours, Continuous Positive Airway Pressure (ICD-10-PCS; 2019-01-27)
PROC: 0HBRXZZ Excision of Toe Nail, External Approach (ICD-10-PCS; 2019-01-27)
DX: J96.21 Acute and chronic respiratory failure with hypoxia (principal); J44.1 Chronic obstructive pulmonary disease with (acute) exacerbation; F41.9 Anxiety disorder, unspecified; N40.0 Benign prostatic hyperplasia without lower urinary tract symptoms; I73.9 Peripheral vascular disease, unspecified; I48.0 Paroxysmal atrial fibrillation; I10 Essential (primary) hypertension; E78.5 Hyperlipidemia, unspecified; R53.81 Other malaise; J96.22 Acute and chronic respiratory failure with hypercapnia; I25.10 Atherosclerotic heart disease of native coronary artery without angina pectoris; L60.3 Nail dystrophy; B35.3 Tinea pedis; F17.210 Nicotine dependence, cigarettes, uncomplicated; Z60.2 Problems related to living alone; Z99.81 Dependence on supplemental oxygen; Z95.820 Peripheral vascular angioplasty status with implants and grafts; Z79.01 Long term (current) use of anticoagulants; Z95.5 Presence of coronary angioplasty implant and graft; Z79.899 Other long term (current) drug therapy; Z79.51 Long term (current) use of inhaled steroids
CPT/HCPCS: 10112

== ENCOUNTER → 2019-09-10 | Outpatient (CLI) | payer OTHER ==
[~2019-09-10] MED LIST changes: +ASA81BEC PO; +CELEXA 10 MG TA10 M1 PO; +CELEXA10 MG PO; +CLOTRIMAZOLE 1%15 G1 TOP; +CVS SENNA PLUS1 EACH PO; +FLONASE 0.05%50 MCG NASAL; +HYDROXYZINE HCL25 M2 PO; +LOPRESSOR25 PO; +LORATIDINE 10 M10 M1 PO; +NEBULIZER MISCELL; +PREDNISONE 20 M20 MG PO; +PROTONIX40 M1 PO; +PROTONIX40 M2 PO; +SINGULAIR 10 MG10 MG PO; +VENTOLIN HFA INH8 GM INH
== END ==
LOC: LAB 10:21
PROVIDERS: ATTEND Pediatrics
DX: Z01.812 Encounter for preprocedural laboratory examination (principal); Z11.59 Encounter for screening for other viral diseases

== ENCOUNTER → 2019-09-14 | Outpatient (CLI) | payer OTHER | LOC: CAT 16:11 | PROVIDERS: ATTEND Pediatrics | DX: J43.8 Other emphysema (principal); K76.0 Fatty (change of) liver, not elsewhere classified ==

== ENCOUNTER 2019-09-15 06:35 | Day surgery (SDC) | payer OTHER ==
[~2019-09-15] VITALS: Ht 172.7 cm; Wt 65.8 kg
[2019-09-15 08:03] VITALS: BP 116/60
--- NOTE | 2019-09-15 13:50 | EKG ---
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 : 1950 Requested By: Chele Camargo Order Number: [id number] MD: Al Vargas Measurements Intervals [place] Rate: 67 P: 77 VA: 122 QRS: 65 QRSD: 87 T: 61 QT: 384 QTc: 406 Interpretive Statements Sinus rhythm Low voltage, extremity leads Baseline wander in lead(s) I,II,aVR,V1,V2 Compared to ECG 01/15/2019 00:56:46 Low QRS voltage now present Atrial premature complex(es) no longer present Electronically Signed On 09-15-2019 13:50:05 CDT by Al Vargas [email or web address] <ELECTRONICALLY SIGNED> By: Al Vargas MD 09/15/19 1350 8 8 Al Vargas MD /EPI
--- NOTE | 2019-09-16 17:06 | PATH ---
[facility] [address] [place] [address] PATHOLOGY RPT PROCEDURE Name: LIAN FAUSTIN Room #: DEP [facility].#: [id number] Admission: 09/15/19 Date of : 48 Discharge: 09/15/19 Report #: [id number] Path Case #: [id number] Note LCA Accession Number: [id number] TESTS RESULT FLAG UNITS REF RANGE LAB Clinician Provided Cytology Information No. of containers..01 Other (Miscellaneous) Source: MICRO BRUSH TIP RLL DIAGNOSIS: 02 MICRO BRUSH TIP RLL NEGATIVE FOR MALIGNANT EPITHELIAL CELLS. NORMAL AND REACTIVE BRONCHIAL CELLS ARE PRESENT. SCANT CELLULARITY. Pathologist ICD10: 02 R91.8 Signed out by: Nicki Dixon MD, Pathologist NPI- [id number] Performed by: 01 Lluvia Taylor Personal Lines Advisor ([facility]) Gross description: 01 1 TP /HUNTER 09/15/2019 1728 Local FLAG LEGEND: L-Low Normal,H-High Normal,LL-Alert Low,HH-Alert High <-Panic Low,>-Panic High,A-Abnormal,AA-Critical Abnormal Performed at: [address] [place] [address] Jack Catalan MD, [address] [address] Nicki Dixon MD, Specimen Comment: A courtesy copy of this report has been sent to [phone] Specimen Comment: Report sent to Performed at: [address], [place], [place] [id number] MD Jack Catalan MD Phone: [phone]
--- NOTE | 2019-09-16 17:06 | PATH ---
[facility] [address] [place] [address] PATHOLOGY RPT PROCEDURE Name: LIAN FAUSTIN Room #: DEP [facility].#: [id number] Admission: 09/15/19 Date of : 48 Discharge: 09/15/19 Report #: [id number] Path Case #: [id number] Note LCA Accession Number: [id number] TESTS RESULT FLAG UNITS REF RANGE LAB Clinician Provided Cytology Information No. of containers..01 Other (Miscellaneous) Source: RLL GENCUT DIAGNOSIS: RLL GENCUT NEGATIVE FOR MALIGNANT EPITHELIAL CELLS. SCANT CELLULARITY. THIS INTERPRETATION INCLUDES EVALUATION OF A CELL BLOCK. RARE BRONCHIAL EPITHELIAL CELLS PRESENT. PREDOMINANTLY FIBROSIS AND MACROPHAGES WITHIN THIS SPECIMEN. Pathologist ICD10: 02 R91.8 Signed out by: Francoise Dixon MD, Pathologist NPI- [id number] Performed by: Arnold Taylor, Video Library Assistant ([facility]) Gross description: 01 20ML, CLEAR RED, 1 CB /LCS 09/15/2019 1727 Local FLAG LEGEND: L-Low Normal,H-High Normal,LL-Alert Low,HH-Alert High <-Panic Low,>-Panic High,A-Abnormal,AA-Critical Abnormal Performed at: [address] [place] [address] Jack Catalan MD, [address] [address] Nicki Dixon MD, Specimen Comment: A courtesy copy of this report has been sent to [phone] Specimen Comment: Report sent to Performed at: [address], [place], [place] [id number] MD Jack Catalan MD Phone: [phone]
--- NOTE | 2019-09-16 17:06 | PATH ---
[facility] [address] [address] PATHOLOGY RPT PROCEDURE Name: LIAN FAUSTIN Room #: DEP [facility].#: [id number] Admission: 09/15/19 Date of : 48 Discharge: 09/15/19 Report #: [id number] Path Case #: [id number] Note LCA Accession Number: [id number] TESTS RESULT FLAG UNITS REF RANGE LAB Clinician Provided Cytology Information No. of containers..01 Slide Source: TBNA TIMOTEO DIAGNOSIS: TBNA TIMOTEO NEGATIVE FOR MALIGNANT EPITHELIAL CELLS. REACTIVE BRONCHIAL CELLS ARE PRESENT. SCANT CELLULARITY. Pathologist ICD10: 02 R91.8 Signed out by: Nicki Dixon MD, Pathologist NPI- [id number] Performed by: Lluvia Taylor, Pan Shover ([facility]) Gross description: 4 FX /LCS 09/15/2019 1728 Local FLAG LEGEND: L-Low Normal,H-High Normal,LL-Alert Low,HH-Alert High <-Panic Low,>-Panic High,A-Abnormal,AA-Critical Abnormal Performed at: [address] [place] [address] Jack Catalan MD, [address] [address] Nicki Dixon MD, Specimen Comment: A courtesy copy of this report has been sent to [phone] Specimen Comment: Report sent to Performed at: [address], [place], [place] [id number] MD Jack Catalan MD Phone: [phone]
--- NOTE | 2019-09-16 17:06 | PATH ---
[facility] [address] [place] [address] PATHOLOGY RPT PROCEDURE Name: LIAN FAUSTIN Room #: DEP [facility].#: [id number] Admission: 09/15/19 Date of : 48 Discharge: 09/15/19 Report #: [id number] Path Case #: [id number] Note LCA Accession Number: [id number] TESTS RESULT FLAG UNITS REF RANGE LAB Clinician Provided Cytology Information No. of containers..01 Other (Miscellaneous) Source: TBNA TIMOTEO ASPIRATE DIAGNOSIS: TBNA TIMOTEO ASPIRATE NEGATIVE FOR MALIGNANT EPITHELIAL CELLS. NORMAL BRONCHIAL CELLS ARE PRESENT. THIS INTERPRETATION INCLUDES EVALUATION OF A CELL BLOCK. Pathologist ICD10: 02 R91.8 Signed out by: 02 Nicki Dixon MD, Pathologist NPI- [id number] Performed by: Arnold Taylor, Historic Sites Supervisor ([facility]) Gross description: 01 25ML, CLEAR, 1 CB /LCS 09/15/2019 1727 Local FLAG LEGEND: L-Low Normal,H-High Normal,LL-Alert Low,HH-Alert High <-Panic Low,>-Panic High,A-Abnormal,AA-Critical Abnormal Performed at: [address] [place] [address] Jack Catalan MD, [address] [address] Nicki Dixon MD, Specimen Comment: A courtesy copy of this report has been sent to [phone] Specimen Comment: Report sent to Performed at: [address], [place], [place] [id number] MD Jack Catalan MD Phone: [phone]
--- NOTE | 2019-09-16 17:06 | PATH ---
[facility] [address] [place] [address] PATHOLOGY RPT PROCEDURE Name: LIAN FAUSTIN Room #: DEP [facility].#: [id number] Admission: 09/15/19 Date of : 48 Discharge: 09/15/19 Report #: [id number] Path Case #: [id number] Note LCA Accession Number: [id number] TESTS RESULT FLAG UNITS REF RANGE LAB Clinician Provided Cytology Information No. of containers..01 Other (Miscellaneous) Source: BRONCH BRUSH TIP RLL DIAGNOSIS: BRONCH BRUSH TIP RLL NEGATIVE FOR MALIGNANT EPITHELIAL CELLS. NORMAL BRONCHIAL CELLS ARE PRESENT. SCANT CELLULARITY. BACKGROUND OF RED BLOOD CELLS AND LYMPHOCYTES. Pathologist ICD10: 02 R91.8 Signed out by: Nicki Dixon MD, Pathologist NPI- [id number] Performed by: Lluvia Taylor, Director Of Admissions ([facility]) Gross description: 1 ARMANDO /HUNTER 09/15/2019 1713 Local FLAG LEGEND: L-Low Normal,H-High Normal,LL-Alert Low,HH-Alert High <-Panic Low,>-Panic High,A-Abnormal,AA-Critical Abnormal Performed at: [address] [place] [address] Jack Catalan MD, [address] [address] Nicki Dixon MD, Specimen Comment: A courtesy copy of this report has been sent to [phone] Specimen Comment: Report sent to Performed at: [address], [place], [place] [id number] MD Jack Catalan MD Phone: [phone]
--- NOTE | 2019-09-16 17:06 | PATH ---
[facility] [address] [place] [address] PATHOLOGY RPT PROCEDURE Name: LIAN FAUSTIN Room #: DEP [facility] [id number] Admission: 09/15/19 Date of : 48 Discharge: 09/15/19 Report #: [id number] Path Case #: [id number] Note LCA Accession Number: [id number] TESTS RESULT FLAG UNITS REF RANGE LAB Clinician Provided Cytology Information No. of containers..01 Other (Miscellaneous) Source: BRONCH WASH DIAGNOSIS: BRONCH WASH NEGATIVE FOR MALIGNANT EPITHELIAL CELLS. REACTIVE BRONCHIAL CELLS ARE PRESENT. Pathologist ICD10: 02 R91.8 Signed out by: Nicki Dixon MD, Pathologist NPI- [id number] Performed by: Lluvia Taylor, Distribution Transformer Assembler ([facility]) Gross description: 01 15ML, HAZY PINK, 1 TP /LCS 09/15/2019 1726 Local FLAG LEGEND: L-Low Normal,H-High Normal,LL-Alert Low,HH-Alert High <-Panic Low,>-Panic High,A-Abnormal,AA-Critical Abnormal Performed at: [address] [place] [address] Jack Catalan MD, [address] [address] Nicki Dixon MD, Specimen Comment: A courtesy copy of this report has been sent to [phone] Specimen Comment: Report sent to Performed at: [address], [place], [place] [id number] MD Jack Catalan MD Phone: [phone]
--- NOTE | 2019-09-16 17:06 | PATH ---
[facility] [address] [place] [address] PATHOLOGY RPT PROCEDURE Name: LIAN FAUSTIN Room #: DEP [facility].#: [id number] Admission: 09/15/19 Date of : 48 Discharge: 09/15/19 Report #: [id number] Path Case #: [id number] Note LCA Accession Number: [id number] TESTS RESULT FLAG UNITS REF RANGE LAB Clinician Provided Cytology Information No. of containers..01 Slide Source: RLL TBNA ASPIRATE DIAGNOSIS: RLL TBNA ASPIRATE NEGATIVE FOR MALIGNANT EPITHELIAL CELLS. NORMAL AND REACTIVE BRONCHIAL EPITHELIAL CELLS ARE PRESENT. Pathologist ICD10: 02 R91.8 Signed out by: Nicki Dixon MD, Pathologist NPI- [id number] Performed by: Lluvia Taylor Computer Forensic Specialist ([facility]) Gross description: 2 FX /LCS 09/15/2019 1727 Local FLAG LEGEND: L-Low Normal,H-High Normal,LL-Alert Low,HH-Alert High <-Panic Low,>-Panic High,A-Abnormal,AA-Critical Abnormal Performed at: [address] [place] [address] Jack Catalan MD, [address] [address] Nicki Dixon MD, Specimen Comment: A courtesy copy of this report has been sent to [phone] Specimen Comment: Report sent to Performed at: [address], [place], [place] [id number] MD Jack Catalan MD Phone: [phone]
== END 2019-09-15 12:45 | disposition home or self-care (01) ==
LOC: TBA 06:35 → OR 06:35 → TBA 06:36 → EDSTATUS 09:51 → PUL 09:52 → OR 12:05
PROVIDERS: ATTEND Pediatrics
DX: R91.8 Other nonspecific abnormal finding of lung field (principal); I10 Essential (primary) hypertension; E78.00 Pure hypercholesterolemia, unspecified; I48.91 Unspecified atrial fibrillation; F41.9 Anxiety disorder, unspecified; J43.9 Emphysema, unspecified; Z98.890 Other specified postprocedural states; Z79.899 Other long term (current) drug therapy; Z87.891 Personal history of nicotine dependence; Z87.19 Personal history of other diseases of the digestive system
CPT/HCPCS: 62110; 62900; 70005

== ENCOUNTER 2020-04-26 17:43 | Emergency (ER) | payer OTHER ==
[~2020-04-26] VITALS: Ht 172.7 cm; Wt 59.0 kg
[2020-04-26 19:11] LABS: BASOPHILS 0.6 % (0.0-2.0); HEMATOCRIT 34.7 % (42.0-52.0); HEMOGLOBIN 11.1 gm/dL (14.0-18.0); MCH 30.3 pg (26.0-34.0); MCHC 31.9 g/dL (28.0-37.0); MCV 94.9 fL (80.0-100.0); MONOCYTES 11.9 % (1.0-8.0); PLATELET COUNT 209 thou/uL (150-400); POLYS 65.5 % (36.0-66.0); RBC 3.65 mil/uL (4.50-6.00); WBC 6.1 thou/uL (4.0-11.0)
[2020-04-26 20:12] LABS: ALBUMIN 3.1 g/dL (3.4-5.0); ANION GAP < 0 mmol/L (7-16); BUN 17 mg/dL (7-18); CALCIUM 8.5 mg/dL (8.5-10.1); CHLORIDE 107 mmol/L (98-107); CO2 42 mmol/L (21-32); CREATININE 0.7 mg/dL (0.7-1.3); DIRECT BILIRUBIN 0.1 mg/dL (<0.1-0.2); GLUCOSE 95 mg/dL (74-106); POTASSIUM 4.5 mmol/L (3.5-5.1); SGOT 16 U/L (15-37); SGPT 21 U/L (16-63); SODIUM 144 mmol/L (136-145); TOTAL BILIRUBIN 0.4 mg/dL (0.2-1.0); TOTAL PROTEIN 5.7 g/dL (6.4-8.2)
[2020-04-26 21:29] LABS: URINE BILIRUBIN NEGATIVE (Negative); URINE BLOOD 3+ (Negative); URINE CLARITY CLEAR; URINE COLOR YELLOW; URINE GLUCOSE-RANDOM* NEGATIVE (Negative); URINE KETONES NEGATIVE (Negative); URINE LEUKOCYTES-REFLEX NEGATIVE (Negative); URINE NITRITE-REFLEX NEGATIVE (Negative); URINE PROTEIN (DIPSTICK) NEGATIVE (Negative); URINE SPECIFIC GRAVITY 1.025 (1.005-1.035); URINE UROBILINOGEN 0.2 E.U./dl (0.2-1.0)
[2020-04-26 21:45] LABS: CASTS None Seen /LPF (None Seen); MUCUS 0-3 Light strn/LPF (None Seen); SQUAMOUS None Seen /LPF (0-3); URINE RBC >20 Many /HPF (0-2); URINE WBC-REFLEX 0-5 Rare /HPF (0-5)
[2020-04-26 21:46] LABS: BACTERIA-REFLEX None Seen /HPF (None Seen); CRYSTALS None Seen /LPF (None Seen)
[2020-04-26] MEDS ORDERED: NORCO5 PO (22:07)
[2020-04-26 22:13] VITALS: BP 132/57
== END 2020-04-26 22:51 | disposition home or self-care (01) ==
LOC: ER 17:43
PROVIDERS: Emergency Medicine
DX: N20.0 Calculus of kidney (principal); J44.9 Chronic obstructive pulmonary disease, unspecified; I48.91 Unspecified atrial fibrillation; I10 Essential (primary) hypertension; E78.5 Hyperlipidemia, unspecified; Z79.899 Other long term (current) drug therapy; Z79.01 Long term (current) use of anticoagulants; Z87.891 Personal history of nicotine dependence